=== PATIENT | female | born 1960 | race Caucasian/White ===

== ENCOUNTER → 2019-02-28 | Outpatient (CLI) | payer BC, SELFPAY ==
[2019-02-28 10:10] VITALS: BMI 42.5
--- NOTE | 2019-02-28 10:14 | RAD_ITS ---
STUDY: X-RAY - RIGHT SHOULDER REASON FOR EXAM: Female, 58 years old. Chronic shoulder pain. TECHNIQUE: 4 view(s) of the shoulder. COMPARISON: None. FINDINGS: Normal glenohumeral articulation. Normal acromioclavicular joint. Normal acromion. Normal humeral head and visualized proximal humerus. There is periarticular soft tissue calcification consistent with a calcific tendinitis. Normal visualized pulmonary apex. RAD/Shoulder min 2 Views IMPRESSION: Calcific tendinitis. Electronically Signed: Xu Villanueva, at 10:43 EDT , Service support ,
== END | disposition home or self-care (01) ==
LOC: HPRAD 10:13
PROVIDERS: Family Provider Family Medicine; PCP Family Medicine; Referring Provider Physician Assistant; Visit Provider Physician Assistant
DX: M25.511 Pain in right shoulder (principal)
CPT/HCPCS: 73030

== ENCOUNTER → 2020-06-13 09:43 | Outpatient (CLI) | payer BC, SELFPAY ==
[2019-03-18 08:13] VITALS: BMI 42.5
[2020-06-13 12:26] LABS: Absolute Lymphocyte Count 1.91 X10^3/uL (0.83-4.51); Absolute Neutrophil Count 4.5 X10^3/uL (2.0-7.7); Basophil# 0.04 X10^3/uL; Basophil% 0.6 % (0-1); Eosinophil# 0.39 X10^3/uL; Eosinophils% 5.4 % (0-5); Hematocrit 39.8 % (37-47); Hemoglobin 12.3 g/dL (12.0-15.0); Lymphocyte # 1.91 X10^3/ul (4.0); Lymphocyte % 26.5 % (19-41); Mean Corp Hgb Conc 30.9 g/dL (32-36); Mean Corpuscular Volume 90.5 fL (81-99); Monocyte# 0.35 X10^3/uL; Monocyte% 4.9 % (0-10); NRBC Flagged by Analyzer 0 % (0-5); Neutrophil # 4.51 X10^3/uL (2.7-7.7); Neutrophil % 62.5 % (47-70); Platelet Count 320 K/mm3 (150-450); RBC Distribution Width CV 14.2 % (11.6-14.6); RBC Distribution Width SD 47.5 fl (35.1-43.9); White Blood Count 7.2 K/mm3 (4.4-11.0)
[2020-06-13 13:02] LABS: Cholesterol 201 mg/dL (200); High Density Lipoprotein 41 mg/dL; Thyroid Stim Hormone (TSH) 2.97 uIU/mL (0.358-3.74); Triglycerides 89 mg/dL; Very Low Density Lipoprotein 18 mg/dL (5-40)
[2020-06-13 13:22] LABS: Hemoglobin A1c 6.2 % (3.8-5.6)
== END ==
PROVIDERS: PCP Family Medicine; Referring Provider Family Medicine; Visit Provider Family Medicine
DX: M25.50 Pain in unspecified joint (principal); E66.01 Morbid (severe) obesity due to excess calories; Z68.41 Body mass index [BMI] 40.0-44.9, adult; R53.83 Other fatigue
CPT/HCPCS: 36415; 80061; 83036; 84443; 85025

== ENCOUNTER 2022-10-09 11:11 | Emergency (ER) | payer OTHER, SELFPAY ==
[2022-10-09 11:14] VITALS: BP 188/89; PULSE 79; RESP 17; TEMP 36.2; O2SAT 98; BMI 42.8
[2022-10-09 11:17] VITALS: BP 188/89; PULSE 79; RESP 17; TEMP 36.2; O2SAT 98
--- NOTE | 2022-10-09 12:20 | EKG12_ITS ---
Test Reason : CP Blood Pressure : / mmHG Vent. Rate : 075 BPM Atrial Rate : 075 BPM P-R Int : 132 ms QRS Dur : 078 ms QT Int : 384 ms P-R-T Axes : 057 037 048 degrees QTc Int : 428 ms Sinus rhythm with occasional Premature ventricular complexes Nonspecific ST and T wave abnormality Abnormal ECG Confirmed by LUIS E NUÑEZ, DEVON ([id number]), story editor ALYSON MASON ([id number]) on 10/10/2022 9:54:09 AM Referred By: EN Confirmed By:DEVON KIMBROUGH MD
--- NOTE | 2022-10-09 12:22 | EDS_ITS ---
HPI History of Present Illness Chief Complaint: Shortness of Breath Informant: patient Narrative Narrative: Present increased palpitations today. 3 days ago upper respiratory illness with coughing. Seen urgent care the following day. Reported viral syndrome she has been using DayQuil that has been improving. Reports mild dyspnea however today noted the fluttering. No lightheaded symptoms. No history of cardiac dysrhythmia. Mild rib discomfort due to coughing previously which is currently improving. Denies fevers. Prior similar symptoms: No PFSH PFSH Medical History (Updated 10/09/22 @ 13:[address] Jt Coy DO) Hay fever Incontinence Knee pain Pollen allergy Right shoulder pain Home Medications ascorbic acid (vitamin C) 500 mg capsule,extended release 500 mg PO DAILY 01/13/19 [History Last Taken Unknown] cyclobenzaprine 10 mg tablet 10 mg PO TID PRN muscle spasm #20 tabs 01/13/19 [Rx Last Taken Unknown] glucosamine HCl 1,500 mg tablet 1,500 mg PO DAILY 01/13/19 [History Last Taken Unknown] loratadine 10 mg tablet (Allergy Relief (loratadine)) 10 mg PO DAILY 01/13/19 [History Last Taken Unknown] vitamin B complex (B Complex 1 tablet) 1 tab PO DAILY 01/13/19 [History Last Taken Unknown] prednisone 20 mg tablet 20 mg PO DAILY #18 tabs 02/28/19 [Rx Last Taken Unknown] Allergy/AdvReac Type Severity Reaction Status Date / Time cat dander Allergy Mild unknown Verified 10/09/22 11:13 Family History Other Cancer Diabetes Heart disease Hypertension Social History Smoking Status: Former smoker alcohol intake: never ROS ROS ED Constitutional Constitutional ED: Denies chills, fever(s) or sweats Eyes Eyes: Denies change in vision ENT ENT ED: Denies dysphagia or sore throat Cardiovascular Cardiovascular: Reports palpitations and racing heartbeat; Denies chest pain or leg edema Respiratory/Chest Respiratory/Chest: Denies cough, dyspnea or dyspnea on exertion Gastrointestinal Gastrointestinal: Denies abdominal pain, diarrhea, nausea or vomiting Genitourinary Genitourinary ED: Denies dysuria, hematuria or urinary frequency Musculoskeletal Musculoskeletal: Denies back pain, extremity pain or neck pain Integumentary Denies rash or wounds Neurologic Neurologic: Denies headache(s), paresthesias or weakness EXAM Physical Exam Const Vital Signs: 10/09/22 11:14 10/09/22 11:24 10/09/22 11:17 Temperature 97.1 F L 97.1 F L Temperature Source Temporal Temporal Pulse Rate 79 79 Respiratory Rate 17 17 Respiratory Effort Normal Respiratory Depth Normal Respiratory Pattern Normal Blood Pressure 188/89 H 188/89 H Blood Pressure Mean 122 122 Pulse Ox 98 98 Oxygen Delivery Method Room Air Room Air 10/09/22 13:03 10/09/22 13:57 Temperature 98.0 F Temperature Source Oral Pulse Rate 67 Respiratory Rate 14 16 Respiratory Effort Respiratory Depth Respiratory Pattern Blood Pressure 174/86 H 175/72 H Blood Pressure Mean 115 Pulse Ox Oxygen Delivery Method Room Air Positive well nourished and well developed General Appearance ED: well developed and NAD HEENT Reports moist mucous membranes normocephalic and atraumatic Eyes PERRL, EOMs intact bilaterally and conjunctivae normal General Eye ED: Yes normal appearance of both eyes Neck no lymphadenopathy and supple General: Negative for tenderness Chest Wall Chest: Negative for tenderness Resp normal respiratory effort and normal air movement Effort and Inspection: symmetric chest movement; Negative for respiratory distress Cardio regular rate, regular rhythm and no murmurs Peripheral Pulses: pulses 2+ throughout GI normal to inspection, nondistended, normoactive bowel sounds and non-tender Palpation: Negative for guarding or rebound tenderness present Back/Spine no CVA tenderness and no thoracic nor lumbar tenderness Extremity normal to inspection General Extremety ED: Negative for edema or tenderness General Extremity: Negative for edema Neuro oriented x3 and no sensory deficits noted Sensorium / Orientation: awake and alert Skin no rashes or lesions noted and no wounds MDM MDM MDM Narrative Medical decision making narrative: Interventions / MDM: Differential diagnosis: Cardiac dysrhythmia with palpitations, viral syndrome Diagnosis considered but do not suspect: ACS, no chest pains, PE, however no hypoxia or tachycardia. My EKG interpretation: Sinus rate of 75, no ST or T wave changes. Imaging independently reviewed and interpreted by myself: N/A External documents reviewed: N/A Test considered but not ordered:N/A ED course: Patient transient palpitations normal EKG. Labs electrolytes and thyroid function all normal. She has viral syndrome not improving. She had elevated blood pressure likely situational. She is reassured. She does do caffeine tabs twice a day as she works third shift. She will monitor her blood pressure and symptoms. Return precautions. All questions were answered. Discussed with pain improving cough and normal lung sounds, therefore no indication for x-rays. Re-evaluation: stable and improved Disposition discussed with patient/family/significant other: Patient Case discussed with consulting clinician: N/A Lab Data Attestation: I reviewed the patient's lab results. Labs: Laboratory Results - last 24 hr 10/09/22 10/09/22 11:56 11:56 WBC 4.7 RBC 4.32 Hgb 12.1 Hct 38.5 MCV 89.1 MCH 28.0 MCHC 31.4 L RDW Std Deviation 44.4 H RDW Coeff of Anmol 13.6 Plt Count 277 MPV 9.3 Immature Gran % (Auto) 0.200 Neut % (Auto) 53.9 Lymph % (Auto) 27.4 O'Brien % (Auto) 7.9 Eos % (Auto) 10.2 H Baso % (Auto) 0.4 Absolute Neuts (auto) 2.5 Absolute Lymphs (auto) 1.29 Nucleated RBC % 0 Sodium 143 Potassium 3.7 Chloride 105 Carbon Dioxide 30.0 Anion Gap 8 BUN 15 Creatinine 0.75 Estim Creat Clear Calc 68.02 Est GFR (MDRD) Af Amer 101 Est GFR (MDRD) Non-Af 83 BUN/Creatinine Ratio 20.0 Glucose 111 H Calcium 9.2 TSH 3.15 EKG Initial EKG: Attestation: I personally reviewed and interpreted this EKG as follows: Comments: Sinus rate of 75, no ST or T wave changes. PVC noted. Discharge Plan Triage Chief Complaint: Shortness of Breath ED Provider: Jt Coy Dx/Rx/DC Orders Clinical Impression: Palpitation, Viral syndrome Instructions: ED Palpitations, ED URI, Viral, No Abx (Adult) Prescriptions: No Action glucosamine HCl 1,500 mg tablet 1,500 mg PO DAILY vitamin B complex [B Complex 1] tablet 1 tab PO DAILY ascorbic acid (vitamin C) 500 mg capsule, extended release 500 mg PO DAILY loratadine [Allergy Relief (loratadine)] 10 mg tablet 10 mg PO DAILY cyclobenzaprine 10 mg tablet 10 mg PO TID PRN (Reason: muscle spasm) Qty: 20 0RF Rx Instructions: To be taken only after work hours on work days prednisone 20 mg tablet 20 mg PO DAILY Qty: 18 0RF Rx Instructions: 3 tablets daily for 3 days, then 2 tablets daily for 3 days, then 1 tablet daily for 3 days Primary Care Provider: Demond Mcdermott Referrals: Demond Mcdermott MD [Primary Care Provider] - 1 Week if not improving Disposition Disposition: Home, Self Care Discharge Date/Time: 10/09/22 14:00
[2022-10-09 12:40] LABS: Absolute Lymphocyte Count 1.29 X10^3/uL (0.83-4.51); Absolute Neutrophil Count 2.5 X10^3/uL (2.0-7.7); Basophil# 0.02 X10^3/uL; Basophil% 0.4 % (0-1); Eosinophil# 0.48 X10^3/uL; Eosinophils% 10.2 % (0-5); Hematocrit 38.5 % (37-47); Hemoglobin 12.1 g/dL (12.0-15.0); Lymphocyte # 1.29 X10^3/ul (0.83-4.51); Lymphocyte % 27.4 % (19-41); Mean Corp Hgb Conc 31.4 g/dL (32-36); Mean Corpuscular Volume 89.1 fL (81-99); Mean Platelet Vol. 9.3 fl (6.2-12.0); Monocyte# 0.37 X10^3/uL; Monocyte% 7.9 % (0-10); NRBC Flagged by Analyzer 0 % (0-5); Neutrophil # 2.54 X10^3/uL (2.7-7.7); Neutrophil % 53.9 % (47-70); Platelet Count 277 K/mm3 (150-450); RBC Distribution Width CV 13.6 % (11.6-14.6); RBC Distribution Width SD 44.4 fl (35.1-43.9); Red Blood Count 4.32 M/mm3 (4.2-5.4); White Blood Count 4.7 K/mm3 (4.4-11.0)
[2022-10-09 13:01] LABS: Anion Gap 8 (5-15); BUN 15 mg/dL (7-18); Calcium,Total 9.2 mg/dL (8.5-10.1); Chloride 105 mmol/L (98-107); Creatinine, Serum 0.75 mg/dL (0.55-1.02); EST Glomerular Filtration Rate 83 mL/min (>60); Est Glom Filt Rate - Afr Amer 101 mL/min (>60); Estimated Creatinine Clearance 68.02 ml/min; Glucose 111 mg/dL (74-106); Potassium 3.7 mmol/L (3.5-5.1); Sodium Level 143 mmol/L (136-145); Thyroid Stim Hormone (TSH) 3.15 uIU/mL (0.358-3.74)
[2022-10-09 13:03] VITALS: BP 174/86; PULSE 67; RESP 14; TEMP 36.7
[2022-10-09 13:57] VITALS: BP 175/72; RESP 16
== END 2022-10-09 14:00 | disposition home or self-care (01) ==
PROVIDERS: Emergency Provider Emergency Medicine; PCP Family Medicine; Visit Provider Emergency Medicine
DX: R00.2 Palpitations (principal); B34.9 Viral infection, unspecified; R06.02 Shortness of breath; R03.0 Elevated blood-pressure reading, without diagnosis of hypertension; Z79.899 Other long term (current) drug therapy; Z87.891 Personal history of nicotine dependence
CPT/HCPCS: 80048; 84443; 85025; 93005; 99284; A4216